=== PATIENT | male | born 1950 | race Hispanic/Latino ===

== ENCOUNTER → 2024-02-05 | Outpatient (CLI) | payer OTHER | END | disposition home or self-care (01) | LOC: SHCH 11:31 | PROVIDERS: ATTEND Internal Medicine Cardiovascular Disease | DX: I73.9 Peripheral vascular disease, unspecified (principal); I65.23 Occlusion and stenosis of bilateral carotid arteries | CPT/HCPCS: 93926 ==

== ENCOUNTER → 2024-06-04 | Outpatient (CLI) | payer OTHER ==
[~2024-06-04] MED LIST: REGADENOSON 0.4 MG/5 ML PF SYG IVP ONE
--- NOTE | 2024-06-05 12:04 | HMCSR ---
APPROVED REPORT Height: 5 ft 6in Weight: 185 lbs TEST INDICATIONS Chest Pain The imaging protocol used to acquire images was Rest Tc-99m/stress Tc-99m 1 day Consent: The procedure was explained and understood by the patient. Informerd consent was witnessed Kofi Ye RN First, low dose rest was performed then high dose stress. RESTING DATA: The resting ekg shows: NSR Rest SPECT myocardial perfusion imaging was performed in supine position minutes following the intra venous injection of 11 mCi of Tc-99 Sestamibi. Time of rest injection: 09:30: Date: 06/04/2024 PHARMACOLOGIC STRESS: Pharmacologic stress test was performed by injecting regadenoson 0.4 mg IV push followed by the intra venous injection of 30 mCi of Tc-99 Sestamibi. Time of stress injection: 11:01: Date: 06/04/2024 Heart Rate at time of stress injection: 62 bpm. Gated Stress SPECT was performed 60 minutes after stress injection. The images were gated to evaluate regional wall motion and calculate left ventricular ejection fracti on. STRESS DETAILS Reason for Termination: Infusion complete Stress Symptoms: Dyspnea Max HR Achieved: 83 bpm % of APMHR Achieved: 66 Max Blood Pressure: 130/58 mmHg Stress ECG: NSR Study quality was good. Lung uptake was Normal. Artifact: No artifact LEFT VENTRICLE Size: The left ventricular size is normal. Systolic Function:The left ventricular systolic function is normal. Wall Motion: No regional wall motion abnormalities noted. The left ventricular ejection fraction was calculated to be 61%.TID = 1.00. LV PERFUSION The rest and stress images show normal perfusion. RV Size/Shape Normal RV Conclusion The left ventricular ejection fraction was calculated to be 61%.TID = 1.00. The rest and stress images show normal perfusion. Low risk.
== END | disposition home or self-care (01) ==
LOC: RAH 08:52
PROVIDERS: ATTEND Internal Medicine Cardiovascular Disease
DX: R07.9 Chest pain, unspecified (principal); R06.00 Dyspnea, unspecified
CPT/HCPCS: 78452; 93017; J2785; A9500 ×2